=== PATIENT | male | born 1990 | race African-American/Black ===

== ENCOUNTER 2022-06-24 12:14 | Emergency (ER) | payer SELFPAY ==
[2022-06-24 13:16] LABS: CORONAVIRUS COVID-19 NAA NEGATIVE (NEGATIVE); INFLUENZA A NAA NEGATIVE (NEGATIVE); INFLUENZA B NAA NEGATIVE (NEGATIVE); RESPIRATORY SYNCYTIAL VIR NAA NEGATIVE (NEGATIVE)
[2022-06-24 13:48] LABS: CARBON DIOXIDE,CO2 29.2 mmol/L (21.0-32.0); POTASSIUM,K 4.2 mmol/L (3.5-5.1)
== END 2022-06-24 14:10 | disposition home or self-care (01) ==
LOC: MW.ED 12:14
DX: J02.9 Acute pharyngitis, unspecified (principal); R53.83 Other fatigue; K59.00 Constipation, unspecified; Z20.822 Contact with and (suspected) exposure to COVID-19
CPT/HCPCS: 0241U; 36415; 74018; 80053; 81003; 85025; 87651; 99283